=== PATIENT | female | born 1985 | race Caucasian/White ===

== ENCOUNTER 2018-06-22 19:14 | Emergency (ER) | payer SELFPAY ==
--- NOTE | 2018-06-22 20:05 | ED Physician Documentation ---
General Adult - HISTORIAN Historian: patient - HPI Stated Complaint: "I have had back pain for 2 days" Chief Complaint: General Adult Onset: days ago (2) Timing: still present Severity: moderate Further Comments: yes (Pt is a 33 yo male with spontaneous onset of back pain 2 days ago. No hx injury or previous back pain. Pain is in the L lower back.) - ROS CONST: no problems EYES/ENT: none CVS/RESP: none GI/: none MS/SKIN/LYMPH: back pain - PAST HX Past History: other (drug abuse) Allergies/Adverse Reactions: Allergies Allergy/AdvReac Type Severity Reaction Status Date / Time No Known Allergies Allergy Verified 06/22/18 19:52 Home Medications: Ambulatory Orders Medication Instructions Recorded NK 06/22/18 - SOCIAL HX Smoking History: cigarettes Drug Use: marijuana, methamphetamines - FAMILY HX Family History: No - VITAL SIGNS Vital Signs: Vital Signs Temp Pulse Resp BP Pulse Ox 97.8 F 78 16 147/63 99 06/22/18 19:20 06/22/18 19:20 06/22/18 19:20 06/22/18 19:20 06/22/18 19:20 - REVIEWED ASSESSMENTS Nursing Assessment Reviewed: Yes Vitals Reviewed: Yes Progress - Progress Progress: Toradol 60 mg IM Diazepam 10 mg po sx improved/resolved General Adult Physical Exam - PHYSICAL EXAM GENERAL APPEARANCE: moderate distress NECK: normal inspection, supple RESPIRATORY: no resp distress, chest non-tender, breath sounds normal CVS: reg rate & rhythm, heart sounds normal ABDOMEN: soft, no organomegaly, normal bowel sounds BACK: normal inspection, other (muscle spasm L lower back/para lumbar area) SKIN: warm/dry, normal color, pallor EXTREMITIES: non-tender, normal range of motion, no evidence of injury, no edema NEURO: oriented X3, CN's nml as tested, motor nml, sensation nml Discharge Clincal Impression: Low back pain Qualifiers: Chronicity: acute Back pain laterality: left Sciatica presence: without sciatica Qualified Code(s): M54.5 - Low back pain Referrals: Primary Doctor,No [Primary Care Provider] - Condition: Stable Disposition: 01 HOME, SELF-CARE Decision to Admit: NO Decision Time: 21:15
[2018-06-22] MEDS ORDERED: KETOROLAC TROMETHAMINE 60 MG/2 ML VIAL IM ONE (20:32)
[2018-06-22] MEDS ORDERED: DIAZEPAM 5 MG TABLET PO ONE (20:32)
[2018-06-22 21:21] VITALS: BP 121/67
== END 2018-06-22 21:20 | disposition home or self-care (01) ==
LOC: ED 19:14
DX: M54.5 Low back pain (principal)
CPT/HCPCS: 96372; 99284; J1885